=== PATIENT | male | born 1975 | race Caucasian/White ===

== ENCOUNTER → 2016-08-03 | Outpatient (CLI) | payer OTHER ==
[~2016-08-03] MED LIST: DOCU-94 PO; HYDR-5688 PO; IBUP-1050 PO; IBUP-1427 PO; LISI-461 PO; OXYC-57 PO; PRED20TA PO
--- NOTE | 2016-08-03 08:11 | DIAGNOSTIC IMAGING REPORT ---
ULTRASOUND KIDNEYS AND BLADDER CLINICAL HISTORY: Left renal lesion. COMPARISON STUDY: No priors. TECHNIQUE: Real-time, grayscale, and color flow sonography of the kidneys and bladder is performed. Images are reviewed in the transverse and longitudinal planes. FINDINGS: Kidneys: The kidneys are normal in size and echotexture. The right kidney measures 13.9 x 6.2 x 6.0 cm and the left kidney measures 14.2 x 6.4 x 6.6 cm. There is no hydronephrosis. No shadowing renal calculi are identified. A 2.1 cm cyst is noted in the left upper pole. There is no sonographic evidence of solid mass lesion. No perinephric fluid is identified. Bladder: The bladder is decompressed and grossly unremarkable. Bilateral ureteral jets were seen. IMPRESSION: 1. The kidneys are normal in size and without hydronephrosis. 2. A 2.1 cm cyst is noted in the left kidney. 3. The bladder was decompressed and grossly unremarkable. Electronically signed by: Nicanor Wang M.D. 08/03/2016 8:09 AM Dictated Date/Time: 08/03/2016 7:53 AM
== END | disposition home or self-care (01) ==
LOC: C.ULTR 07:31
PROVIDERS: ATTEND Nurse Practitioner Adult Health
DX: R93.8 Abnormal findings on diagnostic imaging of other specified body structures (principal); N28.1 Cyst of kidney, acquired

== ENCOUNTER → 2016-10-11 | Outpatient (CLI) | payer OTHER ==
[~2016-10-11] VITALS: Ht 193 cm; Wt 159.5 kg
[2016-10-11 12:27] VITALS: BP 141/90; PULSE 86; Ht 193 cm; Wt 159.5 kg
== END | disposition home or self-care (01) ==
LOC: C.NEUR 11:57
PROVIDERS: ATTEND Internal Medicine Pulmonary Disease
DX: G47.30 Sleep apnea, unspecified (principal); G47.19 Other hypersomnia; Z91.09 Other allergy status, other than to drugs and biological substances